=== PATIENT | female | born 1935 | race Caucasian/White ===

== ENCOUNTER 2017-10-17 12:14 | Outpatient (CLI) | payer OTHER ==
[~2017-10-17 12:14] MED LIST: AVAPRO150 MG; BONINE25 MG; LEVAQUIN750 MG PO; Norvasc 2.5 MG TAB PO; SINGULAIR10 MG; SPIRONOLACTONE25 MG; SYNTHROID125 MCG; VERAPAMIL ER180 MG
== END 2017-10-17 12:16 | disposition home or self-care (01) ==
LOC: RAD 12:14
DX: J44.1 Chronic obstructive pulmonary disease with (acute) exacerbation (principal)